=== PATIENT | female | born 1990 ===

== ENCOUNTER 2016-12-21 20:54 | Emergency (ER) | payer OTHER ==
[2016-12-21 21:18] VITALS: RESP 16; TEMP 98
[2016-12-21 21:51] VITALS: BP 106/71; PULSE 73; O2SAT 99
== END 2016-12-21 21:48 | disposition home or self-care (01) ==
LOC: ED 20:54
DX: O20.0 Threatened abortion (principal); Z3A.01 Less than 8 weeks gestation of pregnancy
CPT/HCPCS: 99282

== ENCOUNTER 2017-03-12 21:18 | Emergency (ER) | payer OTHER ==
[2017-03-12 21:25] VITALS: RESP 16; O2SAT 100
[2017-03-12 22:03] LABS: APPEARANCE,URINE Slightly Cloudy; BILIRUBIN,URINE NEGATIVE (NEGATIVE); COLOR,URINE Dark yellow; GLUCOSE, URINE (UA) NEGATIVE (NEGATIVE); KETONES,URINE NEGATIVE (NEGATIVE); LEUKOCYTE ESTERASE ,URINE TRACE (NEGATIVE); NITRATE,URINE NEGATIVE (NEGATIVE); OCCULT BLOOD,URINE NEGATIVE (NEG-TRACE); UROBILINOGEN,URINE 0.2 (0.2-1.0 EU)
[2017-03-12 22:34] VITALS: BP 106/71; PULSE 85; TEMP 98.5
[2017-03-12 22:44] LABS: BASOPHILS % (AUTO) 2 % (0-3); EOSINOPHILS % (AUTO) 3 % (0-9); HEMATOCRIT 39 % (35-47); MEAN CORPUSCULAR HGB CONC 32.5 gm/dl (32.0-36.0); MONOCYTES % (AUTO) 4.8 % (0-12); NEUTROPHILS % (AUTO) 67.6 % (37-80)
[2017-03-12 22:47] LABS: RBC,URINE 0-2 (0-3AV/HPF); WBC,URINE 0-4 (0-5AV/HPF)
[2017-03-12 22:48] LABS: MEAN CORPUSCULAR VOLUME 80 fL (81-99)
[2017-03-12 22:58] LABS: ALBUMIN 3.5 gm/dl (3.4-5.0); CALCIUM 8.6 mg/dl (8.5-10.1); POTASSIUM 4.1 mMol/L (3.5-5.1)
== END 2017-03-12 23:15 | disposition home or self-care (01) ==
LOC: ED 21:18
DX: K29.70 Gastritis, unspecified, without bleeding (principal)
CPT/HCPCS: 36415; 80053; 81001; 84703; 85025; 99282

== ENCOUNTER 2017-12-02 19:57 | Inpatient (IN) | payer OTHER ==
[2017-12-02] MEDS ORDERED: MEPIVACAINE HCL 1% MPF 30 ML/VIAL SOL INFIL PRN (20:30)
[2017-12-02] MEDS ORDERED: CARBOPROST 250 MCG/ML SOL IM PRN (20:30)
[2017-12-02] MEDS ORDERED: FENTANYL 100MCG/2ML SOL IV PRN (20:30)
[2017-12-02] MEDS ORDERED: SODIUM CHLORIDE 0.9% FLUSH 10 ML SOL IV PRN (20:30)
[2017-12-02] MEDS ORDERED: OXYTOCIN 10000 MU/ML SOL IM PRN (20:30)
[2017-12-02] MEDS ORDERED: METHYLERGONOVINE MALEATE 0.2 MG/ML SOL IM PRN (20:30)
[2017-12-02] MEDS ORDERED: LACTATED RINGERS 1,000 ML IV PRN (20:30)
[2017-12-02] MEDS: SODIUM CHLORIDE 0.9% FLUSH 10 ML SOL IV SCH (21:08)
[2017-12-02] MEDS ORDERED: TERBUTALINE SULFATE 1 MG/ML SOL SC PRN (21:29)
[2017-12-02] MEDS ORDERED: SODIUM CHLORIDE 0.9% 50 ML 25 ML IV PRN (21:37)
[2017-12-03] MEDS ORDERED: CLINDAMYCIN 150 MG/ML SOL ONE ×3 (03:22→19:07)
[2017-12-03] MEDS: CLINDAMYCIN 150 MG/ML 900 MG in SODIUM CHLORIDE 0.9% 100 ML 100 ML IV SCH ×3 (03:36→22:46)
[2017-12-03] MEDS: SODIUM CHLORIDE 0.9% FLUSH 10 ML SOL IV SCH ×2 (03:37→12:30)
[2017-12-03 12:12] LABS: BASOPHILS % (AUTO) 2 % (0-3); EOSINOPHILS % (AUTO) 2 % (0-9); HEMATOCRIT 32 % (35-47); HEMOGLOBIN 10.5 gm/dl (12.0-15.5); LYMPHOCYTES % (AUTO) 17.4 % (10-50); MEAN CORPUSCULAR HEMOGLOBIN 23.5 pg (27.0-32.0); MEAN CORPUSCULAR HGB CONC 32.6 gm/dl (32.0-36.0); MONOCYTES % (AUTO) 4.3 % (0-12); NEUTROPHILS % (AUTO) 74.3 % (37-80)
[2017-12-03 12:14] LABS: MEAN CORPUSCULAR VOLUME 72 fL (81-99)
[2017-12-03] MEDS ORDERED: EPHEDRINE SULFATE 50 MG/ML SOL IV PRN (12:40)
[2017-12-03] MEDS ORDERED: TERBUTALINE SULFATE 1 MG/ML SOL SC PRN ×2 (12:40→12:51)
[2017-12-03] MEDS ORDERED: NALBUPHINE HCL 20 MG/ML SOL IV PRN (12:40)
[2017-12-03] MEDS ORDERED: NALOXONE HYDROCHLORIDE 0.4 MG/ML SOL IV PRN (12:40)
[2017-12-03] MEDS ORDERED: DIPHENHYDRAMINE 50 MG/ML SOL IV PRN (12:40)
[2017-12-03 12:42] LABS: ANISOCYTOSIS MOD AMT; POIKILOCYTOSIS SLIGHT AMT
[2017-12-03 12:43] LABS: OVALOCYTES PRESENT; SPHEROCYTES PRESENT; TARGET CELLS PRESENT
[2017-12-03] MEDS ORDERED: LACTATED RINGERS 1,000 ML IV SCH ×3 (12:45→13:00)
[2017-12-03] MEDS ORDERED: OXYTOCIN 10000 MU/ML 20,000 MU in LACTATED RINGERS 1,000 ML IV SCH ×2 (12:45→13:00)
[2017-12-03] MEDS: LACTATED RINGERS 1,000 ML IV SCH ×2 (12:48→13:35)
[2017-12-03] MEDS ORDERED: FENTANYL 250 MCG/ 5ML SOL ONE (13:36)
[2017-12-03] MEDS ORDERED: LIDOCAINE HCL 2% MPF 10 ML SOL ONE (13:36)
[2017-12-03] MEDS ORDERED: ROPIVACAINE HYDROCHLORIDE 5 MG/ML SOL ONE (13:36)
[2017-12-03] MEDS ORDERED: OXYTOCIN 10000 MU/ML SOL ONE (14:17)
[2017-12-03] MEDS ORDERED: LACTATED RINGERS 1,000 ML ONE (14:17)
[2017-12-03] MEDS ORDERED: BENZOCAINE/MENTHOL 1 SPR TOP PRN (20:05)
[2017-12-03] MEDS ORDERED: BISACODYL 10 MG SUP PR PRN (20:05)
[2017-12-03] MEDS ORDERED: METHYLERGONOVINE MALEATE 0.2 MG TAB PO PRN (20:05)
[2017-12-03] MEDS ORDERED: TEMAZEPAM 15MG 15 MG CAP PO PRN (20:05)
[2017-12-03] MEDS ORDERED: WITCH HAZEL 1 EA PAD TOP PRN (20:05)
[2017-12-03] MEDS ORDERED: FLEET ENEMA PR PRN (20:05)
[2017-12-03] MEDS: IBUPROFEN 600 MG TAB PO PRN (20:35)
[2017-12-03] MEDS: DOCUSATE SODIUM 100 MG SGL PO SCH (20:35)
[2017-12-04] MEDS: IBUPROFEN 600 MG TAB PO PRN ×3 (03:03→19:19)
[2017-12-04] MEDS: DOCUSATE SODIUM 100 MG SGL PO SCH ×2 (11:43→21:11)
[2017-12-04] MEDS: APAP/HYDROCODONE 325/5 TAB PO PRN (21:13)
[2017-12-04] MEDS ORDERED: TRIAMCINOLONE 0.1% CREAM CRE TOP ONE (22:16)
[2017-12-04] MEDS: TRIAMCINOLONE 0.1% CREAM CRE TOP SCH (22:18)
[2017-12-05 03:14] VITALS: RESP 16; O2SAT 98
[2017-12-05] MEDS: IBUPROFEN 600 MG TAB PO PRN (03:17)
[2017-12-05] MEDS: APAP/HYDROCODONE 325/5 TAB PO PRN ×2 (08:39→16:45)
[2017-12-05] MEDS: TRIAMCINOLONE 0.1% CREAM CRE TOP SCH (08:55)
[2017-12-05] MEDS: DOCUSATE SODIUM 100 MG SGL PO SCH (08:55)
[2017-12-05 09:36] VITALS: BP 114/75; PULSE 99; TEMP 97.3
== END 2017-12-05 17:35 | disposition home or self-care (01) | DRG 775 ==
LOC: OB 19:57 → OBSVTOIN 19:57
PROVIDERS: ADMIT Family Medicine; ATTEND Family Medicine
PROC: 0U7C7ZZ Dilation of Cervix, Via Natural or Artificial Opening (ICD-10-PCS; 2017-12-02)
PROC: 10E0XZZ Delivery of Products of Conception, External Approach (ICD-10-PCS; principal; 2017-12-03)
PROC: 10907ZC Drainage of Amniotic Fluid, Therapeutic from Products of Conception, Via Natural or Artificial Opening (ICD-10-PCS; 2017-12-03)
DX: O80 Encounter for full-term uncomplicated delivery (principal); O69.81X0 Labor and delivery complicated by cord around neck, without compression, not applicable or unspecified; O99.824 Streptococcus B carrier state complicating childbirth; Z3A.40 40 weeks gestation of pregnancy; Z37.0 Single live birth
CPT/HCPCS: 36415; 59025; 85018; 85025; 99070; J0670; J2590; J2795; J3010; J3105; J3490; A9270-GY